=== PATIENT | female | born 1975 | race Caucasian/White ===

== ENCOUNTER 2018-05-13 18:27 | Emergency (ER) | payer OTHER ==
[~2018-05-13] VITALS: Ht 170.2 cm; Wt 86.2 kg
[2018-05-13] MEDS ORDERED: LAMICTAL ODT50 MG PO (18:44)
[2018-05-13] MEDS ORDERED: ADDERALL 30 MG30 MG PO (18:44)
[2018-05-13] MEDS ORDERED: CYMBALTA60 MG PO (18:44)
--- NOTE | 2018-05-14 13:53 | EKG ---
[facility] [address] [place], [place] [address] Signed Normal sinus rhythm Nonspecific ST abnormality Abnormal ECG No previous ECGs available Confirmed by MAMTA RAM MD ([id number] on 05/14/2018 1:52:57 PM Electronically Signed By: MAMTA RAM MD 05/14/18 1353 PATIENT NAME: FLAVIA DENIS V Electrocardiogram DATE OF : 73 PHYSICIAN: MAMTA RAM MD REPORT #: [id number] REPORT IS CONFIDENTIAL AND NOT TO BE RELEASED WITHOUT AUTHORIZATION
== END 2018-05-13 21:00 | disposition home or self-care (01) ==
LOC: ED 18:27
DX: R07.9 Chest pain, unspecified (principal); T42.6X5A Adverse effect of other antiepileptic and sedative-hypnotic drugs, initial encounter; F41.9 Anxiety disorder, unspecified; F32.9 Major depressive disorder, single episode, unspecified; G43.909 Migraine, unspecified, not intractable, without status migrainosus; Z88.5 Allergy status to narcotic agent; Z88.8 Allergy status to other drugs, medicaments and biological substances; Z79.899 Other long term (current) drug therapy
CPT/HCPCS: 71046; 80053; 84484; 85025; 85379; 93005; 93010; 96374; 96375; 99285; J2060; J2405